=== PATIENT | male | born 1955 | race Caucasian/White ===

== ENCOUNTER 2021-05-21 21:10 | Emergency (ER) | payer BC ==
[~2021-05-21] VITALS: Ht 170.2 cm; Wt 83.9 kg
[2021-05-22 00:39] LABS: BUN/CREATININE RATIO 29 (0-10)
[2021-05-22 00:40] LABS: HEMOGLOBIN 14.9 gm/dl (14.0-17.5); RED BLOOD COUNT 4.77 M/UL (4.20-5.50); WHITE BLOOD COUNT 6.3 K/UL (4.5-11.0)
[2021-05-22] MEDS ORDERED: ZOFRAN 4 MG TAB4 MG PO (00:55)
== END 2021-05-22 01:20 | disposition home or self-care (01) ==
LOC: ER1 21:10
PROVIDERS: Emergency Medicine
DX: U07.1 COVID-19 (principal); E87.6 Hypokalemia
CPT/HCPCS: 70450; 71045; 80053; 82550; 82553; 83874; 84484; 85025; 85379; 93005; 99284